=== PATIENT | female | born 1980 | race Caucasian/White ===

== ENCOUNTER → 2021-09-09 | Outpatient (CLI) | payer MEDICARE, OTHER ==
[~2021-09-09] MED LIST: ALL DAY ALLERGY10 M2 PO; BENTYL 20MG TAB20 MG PO; HYDROXYZINE HCL10 MG PO; KEFLEX CAP 500500 MG PO; NEXIUM40 MG PO; PRILOSEC20 MG PO; PROVENTIL HFA6.7 GM INH; TENORMIN 25 MG25 MG PO; VISTARIL25 MG PO
== END ==
LOC: KOH-I 09:50
DX: M79.672 Pain in left foot (principal)
CPT/HCPCS: 73630